=== PATIENT | female | born 1950 | race Caucasian/White ===

== ENCOUNTER → 2019-08-02 16:09 | Outpatient (REF) | payer OTHER, SELFPAY | LOC: ANHLAB 16:09 | PROVIDERS: Visit Provider Nurse Practitioner | DX: R22.9 Localized swelling, mass and lump, unspecified (principal) | CPT/HCPCS: 88304; 88342 ==

== ENCOUNTER 2022-09-14 08:18 | Emergency (ER) | payer MEDICARE, SELFPAY ==
[2022-09-14 08:26] VITALS: BP 153/67; PULSE 76; RESP 20; TEMP 36.9; O2SAT 98
[2022-09-14 08:36] VITALS: BP 153/67; PULSE 76; RESP 20; TEMP 36.9; O2SAT 98
--- NOTE | 2022-09-14 08:49 | ED.FEMALEGU ---
HPI - Female Genitourinary General Chief complaint: Urogenital-Female Stated complaint: poss uti Time Seen by Provider: 09/14/22 08:49 History of Present Illness HPI Narrative: patient presents with low back pain burning with urination. Patient denies any gross hematuria no flank pain no fever. Related Data Home Medications Medication Instructions Recorded Confirmed acetaminophen 650 mg 650 mg PO Q12H PRN Pain 06/22/19 09/14/22 tablet,extended release (Arthritis Pain Relief (acetaminophen) ER) alendronate 70 mg tablet 70 mg PO WEEKLY 06/22/19 09/14/22 amlodipine 5 mg tablet 5 mg PO DAILY 06/22/19 09/14/22 cholecalciferol (vitamin D3) 50 2,000 unit PO DAILY 06/22/19 09/14/22 mcg (2,000 unit) capsule ibuprofen 200 mg capsule 200 mg PO Q6H PRN Pain 06/22/19 09/14/22 magnesium 250 mg tablet 250 mg PO DAILY 06/22/19 09/14/22 omeprazole 20 mg capsule,delayed 20 mg PO DAILY 06/22/19 09/14/22 release quinapril 40 mg tablet 40 mg PO DAILY 06/22/19 09/14/22 vit C 250 mg-vit E 200 unit-zinc cap PO 06/22/19 12/27/20 ox 12.5 lo-iyxrdk-joseyh-zeax capsule (ICaps AREDS2) vitamin B complex (Super B-50 1 cap PO DAILY 06/22/19 Complex capsule) levothyroxine 137 mcg capsule 137 mcg PO DAILY 12/27/20 09/14/22 lisinopril 40 mg tablet 40 mg PO DAILY 09/14/22 09/14/22 Allergies Allergy/AdvReac Type Severity Reaction Status Date / Time azithromycin Allergy Unknown Unknown Verified 09/14/22 08:33 celecoxib Allergy Unknown Unknown Verified 09/14/22 08:33 diltiazem Allergy Unknown Unknown Verified 09/14/22 08:33 ibuprofen Allergy Unknown Unknown Verified 09/14/22 08:33 iohexol [From Omnipaque] Allergy Rash Verified 09/14/22 08:48 meloxicam Allergy Unknown Verified 09/14/22 08:33 NSAIDS (Non-Steroidal Allergy Unknown Verified 09/14/22 08:33 Anti-Inflamma Review of Systems Review of Systems: CONSTITUTIONAL: Denies fever, chills, or sweats. EYES: Denies visual changes, redness, or discharge. ENT: Denies rhinorrhea, congestion, sore throat, or otalgia. CARDIOVASCULAR: Denies chest pain, palpitations, or edema. RESPIRATORY: Denies cough or dyspnea. GASTROINTESTINAL: Denies abdominal pain, nausea, vomiting, or diarrhea. GENITOURINARY: Denies dysuria or hematuria. SKIN: Denies rash or itching. MUSCULOSKELETAL: Denies back pain, joint pain, or myalgia. NEUROLOGIC: Denies headache, numbness, or weakness. PSYCHIATRIC: Denies anxiety or depression. [facility] Surgical History Surgical History H/O lateral meniscus repair of right knee November 1997 History of cholecystectomy May 1994 History of left hip replacement 12/28/2018 Hx of carpal tunnel repair November 2003 Family History Family History Mother Diabetes mellitus Sibling Diabetes mellitus Hypertension Family history of cardiovascular disease Family history of kidney stones Depression Father Heart disease Grandparent Heart disease Social History Social History Smoking status: Never smoker Alcohol intake: never Substance use: never Substance use type: does not use Comments At time of signature, agree with nursing past medical, surgical, social and family history. There is no relevant family history pertinent to the presenting complaint Exam Narrative: GENERAL: Well-appearing, well-nourished, and in no acute distress. HEAD: Normocephalic, atraumatic. EYES: PERRLA and EOMI. ENT: Nares clear, no rhinorrhea or epistaxis. Mucous membranes moist. NECK: Supple. CHEST: Clear to auscultation. No respiratory distress. HEART: Regular rate and rhythm. No murmur heard. Normal peripheral pulses. ABDOMEN: Soft, nontender, nondistended, normal active bowel sounds. EXTREMITIES: Normal range of motion. No edema. SKIN: Warm, dry, no rash. NEURO: No focal deficits. Alert and oriented x3. [place] [facility]
== END 2022-09-14 08:58 | disposition home or self-care (01) ==
PROVIDERS: Emergency Provider Nurse Practitioner Family; PCP Family Medicine
DX: N39.0 Urinary tract infection, site not specified (principal); B37.31 Acute candidiasis of vulva and vagina; T36.95XA Adverse effect of unspecified systemic antibiotic, initial encounter; Z96.642 Presence of left artificial hip joint
CPT/HCPCS: 81003; 87086; 99213; G0463

== ENCOUNTER 2023-01-21 12:50 | Emergency (ER) | payer MEDICARE, SELFPAY ==
[2023-01-21 12:59] VITALS: BP 177/66; PULSE 80; RESP 16; TEMP 36.5; O2SAT 98
[2023-01-21 13:09] VITALS: BP 177/66; PULSE 80; RESP 16; TEMP 36.5; O2SAT 98
--- NOTE | 2023-01-21 13:27 | ED.GENADULT ---
HPI - General Adult General Chief complaint: Urogenital-Female Stated complaint: Urinary Problem Source: patient Mode of arrival: ambulatory Limitations: no limitations History of Present Illness HPI narrative: Patient presents for evaluation of urinary symptoms. Symptom onset yesterday. Primary symptom is urinary frequency. She denies any hematuria, dysuria, hesitancy or urgency. She has noted some left flank pain in left lower quadrant pain. She rates the pain 2/10 severity, worse with walking. She denies any change in bowel pattern. No fever, chills, nausea, vomiting. No history of kidney stones. She is wondering whether she has a urinary tract infection. Related Data Home Medications Medication Instructions Recorded Confirmed acetaminophen 650 mg 650 mg PO Q12H PRN Pain 06/22/19 01/21/23 tablet,extended release (Arthritis Pain Relief (acetaminophen) ER) alendronate 70 mg tablet 70 mg PO WEEKLY 06/22/19 01/21/23 amlodipine 5 mg tablet 5 mg PO DAILY 06/22/19 01/21/23 cholecalciferol (vitamin D3) 50 2,000 unit PO DAILY 06/22/19 01/21/23 mcg (2,000 unit) capsule ibuprofen 200 mg capsule 200 mg PO Q6H PRN Pain 06/22/19 01/21/23 magnesium 250 mg tablet 250 mg PO DAILY 06/22/19 01/21/23 omeprazole 20 mg capsule,delayed 20 mg PO DAILY 06/22/19 01/21/23 release vit C 250 mg-vit E 200 unit-zinc 1 cap PO DAILY 06/22/19 12/27/20 ox 12.5 we-uookni-ridvwd-zeax capsule (ICaps AREDS2) vitamin B complex (Super B-50 1 cap PO DAILY 06/22/19 01/21/23 Complex capsule) levothyroxine 137 mcg capsule 137 mcg PO DAILY 12/27/20 01/21/23 lisinopril 40 mg tablet 40 mg PO DAILY 09/14/22 01/21/23 rosuvastatin 40 mg tablet 40 mg PO DAILY 01/21/23 01/21/23 Allergies Allergy/AdvReac Type Severity Reaction Status Date / Time azithromycin Allergy Unknown Unknown Verified 09/14/22 08:33 celecoxib Allergy Unknown Unknown Verified 09/14/22 08:33 diltiazem Allergy Unknown Unknown Verified 09/14/22 08:33 ibuprofen Allergy Unknown Unknown Verified 09/14/22 08:33 iohexol [From Omnipaque] Allergy Rash Verified 09/14/22 08:48 meloxicam Allergy Unknown Verified 09/14/22 08:33 NSAIDS (Non-Steroidal Allergy Unknown Verified 09/14/22 08:33 Anti-Inflamma Review of Systems Review of Systems: CONSTITUTIONAL: Denies fever, chills, or sweats. EYES: Denies visual changes, redness, or discharge. ENT: Denies rhinorrhea, congestion, sore throat, or otalgia. CARDIOVASCULAR: Denies chest pain, palpitations, or edema. RESPIRATORY: Denies cough or dyspnea. GASTROINTESTINAL: Reports left lower quadrant pain. Denies nausea, vomiting, or diarrhea. GENITOURINARY: Reports urinary frequency. Denies dysuria or hematuria. BACK: Reports left flank pain. SKIN: Denies rash or itching. MUSCULOSKELETAL: Denies back pain, joint pain, or myalgia. NEUROLOGIC: Denies headache, numbness, dizziness, or weakness. PSYCHIATRIC: Denies anxiety or depression. [facility] Past Medical History Medical History Hyperlipidemia Hypothyroidism Surgical History Surgical History H/O lateral meniscus repair of right knee November 1997 History of cholecystectomy May 1994 History of left hip replacement 12/28/2018 Hx of carpal tunnel repair November 2003 Family History Family History Mother Diabetes mellitus Sibling Diabetes mellitus Hypertension Family history of cardiovascular disease Family history of kidney stones Depression Father Heart disease Grandparent Heart disease Social History Social History Smoking status: Never smoker Alcohol intake: never Substance use: never Substance use type: does not use Living arrangements: with family Gender identity (if verbalized by the patient): Female Spiritual
== END 2023-01-21 13:19 | disposition home or self-care (01) ==
PROVIDERS: Emergency Provider Nurse Practitioner; PCP Family Medicine
DX: R35.0 Frequency of micturition (principal); R10.32 Left lower quadrant pain; E78.5 Hyperlipidemia, unspecified; E03.9 Hypothyroidism, unspecified; Z96.652 Presence of left artificial knee joint
CPT/HCPCS: 81003; 99212; G0463

== ENCOUNTER 2023-10-22 15:23 | Emergency (ER) | payer MEDICARE, SELFPAY ==
[2023-10-22 15:28] VITALS: BP 181/73; PULSE 90; RESP 18; TEMP 37.7; O2SAT 98
--- NOTE | 2023-10-22 15:33 | ED.URI ---
HPI - URI/Sore Throat General Chief Complaint: Upper Respiratory Infection Stated Complaint: Cough Source: patient, RN notes reviewed and old records reviewed Mode of arrival: ambulatory Limitations: no limitations History of Present Illness HPI Narrative: 73-year-old female presents to [facility] with complaint of cough, congestion, fever this started 10 days ago. Patient taking [id number] medications with little relief. Patient states is having with abdominal/rib pain with coughing. Related Data Home Medications Medication Instructions Recorded Confirmed alendronate 70 mg tablet 70 mg PO WEEKLY 06/22/19 10/22/23 cholecalciferol (vitamin D3) 50 2,000 unit PO DAILY 06/22/19 10/22/23 mcg (2,000 unit) capsule magnesium 250 mg tablet 250 mg PO DAILY 06/22/19 10/22/23 omeprazole 20 mg capsule,delayed 20 mg PO DAILY 06/22/19 10/22/23 release vit C 250 mg-vit E 200 unit-zinc 1 cap PO DAILY 06/22/19 10/22/23 ox 12.5 bc-ahxspr-xkweoq-zeax capsule (ICaps AREDS2) lisinopril 40 mg tablet 40 mg PO DAILY 09/14/22 10/22/23 amlodipine 10 mg tablet 10 mg PO DAILY 10/22/23 10/22/23 levothyroxine 125 mcg tablet 125 mcg PO DAILY 10/22/23 10/22/23 rosuvastatin 20 mg tablet 20 mg PO QPM 10/22/23 10/22/23 Allergies Allergy/AdvReac Type Severity Reaction Status Date / Time azithromycin Allergy Unknown Unknown Verified 10/22/23 15:33 celecoxib Allergy Unknown Unknown Verified 10/22/23 15:33 diltiazem Allergy Unknown Unknown Verified 10/22/23 15:33 ibuprofen Allergy Unknown Unknown Verified 10/22/23 15:33 iohexol [From Omnipaque] Allergy Rash Verified 10/22/23 15:33 meloxicam Allergy Unknown Verified 10/22/23 15:33 NSAIDS (Non-Steroidal Allergy Unknown Verified 10/22/23 15:33 Anti-Inflamma Review of Systems Constitutional: Constitutional: Reports no additional constitutional complaints, Denies body ache(s), Denies chills, Denies fatigue, Denies fever(s) and Denies headache(s) Eyes: Eyes: Reports no additional eye complaints and Denies blurry vision ENT: Reports system reviewed and no additional complaints, except as documented, Denies vertigo, Denies dizziness, Denies ear discharge, Denies otalgia, Denies facial pain, Denies headache(s), Reports nasal congestion, Reports nasal discharge, Denies sinus pain, Denies sinus pressure and Reports sore throat Cardiovascular: Cardiovascular: Reports no additional cardiovascular complaints, Denies chest pain, Denies chest pain at rest, Denies rapid heart rate and Denies dyspnea Respiratory: Respiratory: Reports no additional respiratory complaints, Reports chest congestion, Reports cough, Denies pain on inspiration, Reports pain with cough and Denies dyspnea Gastrointestinal: Gastrointestinal: Denies abdominal pain, Denies diarrhea, Denies nausea and Denies vomiting Integumentary/Breasts: Skin/Breast: Denies rash Neurologic: Reports system reviewed and no additional complaints, except as documented, Denies vertigo, Denies dizziness and Denies headache(s) Endocrine: Endocrine: Denies fatigue PMFSH Past Medical History Medical History Hyperlipidemia Hypothyroidism Surgical History Surgical History H/O lateral meniscus repair of right knee November 1997 History of cholecystectomy May 1994 History of left hip replacement 12/28/2018 Hx of carpal tunnel repair November 2003 Family History Family History Mother Diabetes mellitus Sibling Diabetes mellitus Hypertension Family history of cardiovascular disease Family history of kidney stones Depression Father Heart disease Grandparent Heart disease Social History Social History Smoking status: Never smoker Alcohol intake: never Substance use: never Substance use type: d
[2023-10-22 15:50] VITALS: BP 181/73; PULSE 90; RESP 18; TEMP 37.7; O2SAT 98
== END 2023-10-22 15:55 | disposition home or self-care (01) ==
PROVIDERS: Emergency Provider Registered Nurse
DX: J20.9 Acute bronchitis, unspecified (principal); E78.5 Hyperlipidemia, unspecified; E03.9 Hypothyroidism, unspecified; Z96.642 Presence of left artificial hip joint
CPT/HCPCS: 99213; G0463